=== PATIENT | female | born 1965 | race Two or more races ===

== ENCOUNTER 2022-04-13 06:23 | Day surgery (SDC) | payer OTHER ==
[~2022-04-13] VITALS: Ht 157.5 cm; Wt 50.8 kg
[~2022-04-13 06:23] MED LIST: AMLODIPINE-OLM1 EAC2 PO; ZYRTEC10 M3 PO
== END 2022-04-13 15:30 | disposition home or self-care (01) ==
LOC: CIR.AMB 06:23
PROVIDERS: ATTEND Orthopaedic Surgery
DX: M75.122 Complete rotator cuff tear or rupture of left shoulder, not specified as traumatic (principal); I10 Essential (primary) hypertension; R73.03 Prediabetes; Z20.822 Contact with and (suspected) exposure to COVID-19

== ENCOUNTER 2023-03-01 05:15 | Day surgery (SDC) | payer OTHER ==
[2023-02-20 09:11] LABS: PH,URINE 6.5 (5.0-8.0); URINE APPEARANCE Clear; URINE BILIRRUBIN Negative (NEGATIVE); URINE BLOOD Negative; URINE COLOR Yellow; URINE GLUCOSE Negative (NEGATIVE); URINE LEUKOCYTE Trace; URINE NITRATE Negative; URINE PROTEIN Negative (NEGATIVE); URINE UROBILINOGEN 0.2 E.U./dl
[2023-02-20 09:13] LABS: URINE BACTERIA 81.7 uL (0.0-1933); URINE EPITHELIAL CELLS 4.6 uL (0.0-38.8); URINE WBC 6.4 uL (0.0-23.2)
[2023-02-20 09:33] LABS: HEMATOCRIT 43.5 % (36.0-45.00); HEMOGLOBIN 14.8 g/dL (12.0-15.00); MEAN CELL VOLUME 88.4 fL (80.00-100.00); MEAN CORPUSCULAR HGB CONC 33.9 g/dl (32.0-36.0); PLATELET COUNT 223 K/uL (150-450); RED BLOOD COUNT 4.92 M/uL (4.00-6.00); RED CELL DISTRIBUTION WIDTH 14.1 % (11.5-14.5)
[2023-02-20 09:38] LABS: URINE RBC 0.7 uL (0.0-20.8)
[2023-02-20 10:02] LABS: ALBUMIN 4.2 gm/dL (3.4-5.0); BILIRUBIN TOTAL 0.51 mg/dL (0.3-1.2); CALCIUM 9.4 mg/dL (8.5-10.1); CREATININE SERUM 0.74 mg/dL (0.55-1.02); GFR 80.89; GLOBULINA 3.2 G/DL (2.4-3.5); POTASSIUM 4.18 mEq/L (3.5-5.1); TOTAL PROTEIN 7.4 gm/dL (6.4-8.2)
[2023-02-20 10:08] LABS: INR 1.03; PARTIAL THROMBOPLASTIN TIME 26.1 SECONDS (22.0-34.0); PROTHROMBIN TIME 10.8 SECONDS (9.0-11.5)
== END 2023-03-01 11:05 | disposition home or self-care (01) ==
LOC: CIR.AMB 05:15
PROVIDERS: ATTEND Orthopaedic Surgery
DX: M75.02 Adhesive capsulitis of left shoulder (principal); M75.42 Impingement syndrome of left shoulder; M75.112 Incomplete rotator cuff tear or rupture of left shoulder, not specified as traumatic; I10 Essential (primary) hypertension; Z20.822 Contact with and (suspected) exposure to COVID-19

== ENCOUNTER 2024-12-25 07:00 | Day surgery (SDC) | payer OTHER ==
[2024-12-18 15:01] VITALS: BP 185/74
[~2024-12-25] VITALS: Ht 157.5 cm; Wt 54.4 kg
[~2024-12-25 07:00] MED LIST changes: +ENALAPRIL; +FOSAMAX70 MG; +VITAMIN B3; +VITAMIN E; +[UNRECOGNIZED DRUG - OTHER]
[2024-12-25] MEDS ORDERED: CEFAZOLIN SODIUM 1,000 MG VIAL ONE (07:27)
[2024-12-25] MEDS ORDERED: KETOROLAC TROMETHAMINE 30 MG VIAL ONE (10:18)
[2024-12-25] MEDS ORDERED: LIDOCAINE HCL 1%/EPINEPHRINE 20ML VIAL IJ ONE (10:19)
[2024-12-25] MEDS ORDERED: BUPIVACAINE HCL/MPF 0.5% 30ML VIAL ONE (10:19)
[2024-12-25] MEDS ORDERED: SUGAMMADEX SODIUM 200 MG/2 ML VIAL IV ONE (10:44)
[2024-12-25] MEDS ORDERED: ONDANSETRON HCL 2 MG/ML VIAL IV ONE (12:10)
[2024-12-25] MEDS ORDERED: ENALAPRILAT DIHYDRATE 1.25 MG/ML VIAL IV ONE (12:49)
[2024-12-25] MEDS ORDERED: ENALAPRILAT DIHYDRATE 2.5 MG/2 ML VIAL IV ONE (13:15)
== END 2024-12-25 14:30 | disposition home or self-care (01) ==
LOC: CIR.AMB 07:00
PROVIDERS: ATTEND Orthopaedic Surgery
DX: M75.121 Complete rotator cuff tear or rupture of right shoulder, not specified as traumatic (principal); M75.21 Bicipital tendinitis, right shoulder; M24.111 Other articular cartilage disorders, right shoulder